=== PATIENT | male | born 1970 | race Caucasian/White ===

== ENCOUNTER 2017-07-12 21:11 | Emergency (ER) | payer SELFPAY ==
[2017-07-13] MEDS ORDERED: Tetan/Diph/Pertus SYR(Tdap)* 0.5 ML SYR(BOOSTRIX) use SYR IM ONE (00:16)
[2017-07-13 00:51] VITALS: BP 139/71
--- NOTE | 2017-07-13 01:02 | ED ---
Jennifer Rey Thomas, scribed for Dior Vega MD on 07/13/17 at 0059 . Laceration/Wound HPI - HPI Summary HPI Summary: The pt is a 47 y/o M presenting to the ED c/o laceration on right fourth finger with razor knife at 20:30. The pain is rate 0/10. 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 The patient is unsure when his last tetanus shot was. - History of Current Complaint Stated Complaint: RIGHT RING FINGER LAC Time Seen by Provider: 07/13/17 00:04 Hx Obtained From: Patient Onset/Duration: Lasting Hours - right fourth finger at 20:30, Still Present Current Severity: None Pain Intensity: 0 Pain Scale Used: 0-10 Numeric - Allergy/Home Medications Allergies/Adverse Reactions: Allergies Allergy/AdvReac Type Severity Reaction Status Date / Time Metronidazole Allergy Anaphylatic Verified 07/12/17 21:33 Shock PMH/Surg Hx/FS Hx/Imm Hx Previously Healthy: Yes Endocrine/Hematology History: Denies: Hx Diabetes Cardiovascular History: Denies: Hx Hypertension - Immunization History Date of Tetanus Vaccine: unknown Infectious Disease History: No Infectious Disease History: Denies: Traveled Outside the [place] in Last 30 Days - Family History Known Family History: Positive: Cardiac Disease, Diabetes Negative: Hypertension - Social History Alcohol Use: None Substance Use Type: Reports: None Smoking Status (MU): Never Smoked Tobacco Review of Systems Negative: Fever Positive: Other - laceration in right fourth finger All Other Systems Reviewed And Are Negative: Yes Physical Exam - Summary Physical Exam Summary: VITAL SIGNS: Reviewed. GENERAL: Patient is a well-developed and nourished male who is lying comfortable in the stretcher. Patient is not in any acute respiratory distress. HEAD AND FACE: No signs of trauma. No ecchymosis, hematomas or skull depressions. No sinus tenderness. EYES: PERRLA, EOMI x 2, No injected conjunctiva, no nystagmus. EARS: Hearing grossly intact. Ear canals and tympanic membranes are within normal limits. MOUTH: Oropharynx within normal limits. NECK: Supple, trachea is midline, no adenopathy, no JVD, no carotid bruit, no c- spine tenderness, neck with full ROM. CHEST: Symmetric, no tenderness at palpation LUNGS: Clear to auscultation bilaterally. No wheezing or crackles. CVS: Regular rate and rhythm, S1 and S2 present, no murmurs or gallops appreciated. ABDOMEN: Soft, non-tender. No signs of distention. No rebound no guarding, and no masses palpated. Bowel sounds are normal. EXTREMITIES: FROM in all major joints, no edema, no cyanosis or clubbing. There was a laceration repair on the right dorsal fourth finger. The laceration was 1.2cm in size. NEURO: Alert and oriented x 3. No acute neurological deficits. Speech is normal and follows commands. SKIN: Dry and warm Triage Information Reviewed: Yes Vital Signs On Initial Exam: Initial Vitals Temp Pulse Resp BP Pulse Ox 97.9 F 60 16 142/88 97 07/12/17 21:25 07/12/17 21:25 07/12/17 21:25 07/12/17 21:25 07/12/17 21:25 Vital Signs Reviewed: Yes - [place] Coma Scale Coma Scale Total: 15 Procedures - Laceration/Wound Repair 1 Location: Other - dorsal right fourth finger Anesthesia: Local, 1.0%, [place] Length, Depth and Shape: 1.2cm vertical Irrigated w/ Saline (ccs): 1 Suture Type: Other - 4-0 Number of Sutures: 3 Diagnostics - Vital Signs Vital Signs Temp Pulse Resp BP Pulse Ox 07/12/17 21:25 97.9 F 60 16 142/88 97 - Laboratory Lab Statement: Any lab studies that have been ordered have been reviewed, and results considered in the medical decision making process. Laceration Repair Course/Dx - Course Assessment/Plan: The patient had a laceration repair on his dorsal right fourth finger. There is good alignment and hemostasis. The patient will be discharged home. He is instructued to follow wound care instructions and receive suture removal in 10 days. - Clinical Impression Provider Diagnoses: Laceration, Finger laceration Discharge - Discharge Plan Condition: Stable Disposition: HOME Patient Education Materials: Care For Your Stitches (ED), Laceration (ED) Referrals: No Primary Care Phys,NOPCP [Primary Care Provider] - Additional Instructions: Follow the wound care instructions provided. The sutures are to be removed in 10 days. Return to the emergency department for any new or worsening symptoms. The documentation as recorded by the Jennifer bradshaw Thomas accurately reflects the service I personally performed and the decisions made by Gary santana Abdul, MD.
== END 2017-07-13 00:46 | disposition home or self-care (01) ==
LOC: ED 21:11
DX: S61.219A Laceration without foreign body of unspecified finger without damage to nail, initial encounter (principal); W26.0XXA Contact with knife, initial encounter; Y93.9 Activity, unspecified; Y92.9 Unspecified place or not applicable
CPT/HCPCS: 90471; 90715; 99282